=== PATIENT | female | born 1950 | race Caucasian/White ===

== ENCOUNTER 2019-01-08 17:58 | Emergency (ER) | payer MEDICARE, OTHER ==
[~2019-01-08] VITALS: Ht 167.6 cm; Wt 125.6 kg
[2019-01-08] MEDS ORDERED: ONDANSETRON ODT8 MG PO (18:27)
[2019-01-08] MEDS ORDERED: CYCLOBENZAPRINE10 MG PO (18:27)
[2019-01-08] MEDS ORDERED: PREDNISONE20 MG PO (18:27)
--- OUTSIDE RECORDS SUMMARY | 2019-01-08 18:56 | XMS ---
PreManage Notification: GUILLAUME SIMMS Security Floorworker Distributor Events No recent Security Events currently on file CRITERIA MET - [facility] - 2 Visits in 30 Days CARE PROVIDERS JOSEY, Internal Medicine Current [facility] PHONE: Unknown Rony has no Care Guidelines for this patient. EAkhil VISIT COUNT (12 MO.) [address] [place] [address] Ana Johansen [address] [place] [address] TOTAL 2 NOTE: Visits indicate total known visits. ED/UCC VISIT TRACKING (12 MO.) 01/08/2019 17:[address] [facility] [place] TYPE: Emergency COMPLAINT: - REDNESS IN FACE/ NECK 01/03/2019 15:35 [facility] TYPE: Emergency DIAGNOSES: - Palpitations - Dependence on other enabling machines and devices - Chest pain, unspecified - Palpitations - Essential (primary) hypertension - palpitations, shortness of breath, chest/arm pain - Body mass index (BMI) 40.0-44.9, adult - Shortness of breath - Chronic obstructive pulmonary disease with (acute) exacerbation - Shortness of Breath - palpitations, shortness of breath - Obstructive sleep apnea (adult) (pediatric) INPATIENT VISIT TRACKING (12 MO.) No inpatient visits to display in this time frame [email or web address]
[2019-01-08] MEDS ORDERED: PREDNISONE10 MG PO (18:58)
[2019-01-08] MEDS ORDERED: VENTOLIN HFA18 GM INH (18:58)
[2019-01-08] MEDS ORDERED: HYDROCODON-ACE1 EAC8 PO (18:59)
[2019-01-08] MEDS ORDERED: OXYCODONE-ACET1 EAC3 PO (18:59)
[2019-01-08] MEDS ORDERED: ZITHROMAX250 MG PO (18:59)
[2019-01-08] MEDS ORDERED: ALPRAZOLAM0.5 MG PO (18:59)
[2019-01-08] MEDS ORDERED: POTASSIUM CHLO10 ME1 PO (19:00)
[2019-01-08] MEDS ORDERED: HYDROCHLOROTHIA25 MG PO (19:00)
[2019-01-08] MEDS ORDERED: ATENOLOL50 MG PO (19:00)
[2019-01-08] MEDS ORDERED: DIPHENOXYLATE-1 EACH PO (19:00)
[2019-01-08] MEDS ORDERED: CLOBETASOL PROP50 ML TOP (19:00)
[2019-01-08] MEDS ORDERED: LIDOCAINE1 EACH TD (19:01)
[2019-01-08] MEDS ORDERED: ONDANSETRON ODT4 MG PO (19:01)
[2019-01-08] MEDS ORDERED: RANITIDINE HCL150 MG PO (19:01)
[2019-01-08] MEDS ORDERED: FUROSEMIDE40 MG PO (19:01)
[2019-01-08] MEDS ORDERED: IPRATROPIUM BRO30 ML NAS (19:01)
== END 2019-01-08 18:58 | disposition home or self-care (01) ==
LOC: ED 17:58
DX: J44.9 Chronic obstructive pulmonary disease, unspecified (principal); R11.0 Nausea; M62.838 Other muscle spasm; E11.9 Type 2 diabetes mellitus without complications; Z85.118 Personal history of other malignant neoplasm of bronchus and lung; Z90.49 Acquired absence of other specified parts of digestive tract; Z90.710 Acquired absence of both cervix and uterus; Z88.0 Allergy status to penicillin; Z88.7 Allergy status to serum and vaccine; Z91.041 Radiographic dye allergy status
CPT/HCPCS: 99283